=== PATIENT | female | born 1980 | race Asian ===

== ENCOUNTER 2019-07-25 19:43 | Emergency (ER) | payer SELFPAY ==
[2019-07-25 20:09] LABS: ABS Lymphocytes 1.1 10^3/ul (1.0-4.8); ABS Monocytes 0.8 10^3/ul (0-0.8); ABS Neutrophils 8.4 10^3/ul (1.5-7.7); Eosinophil % 0.4 %; Hematocrit 36 % (35-47); Hemoglobin 12.4 g/dL (12.0-16.0); Lymphocyte % 10.7 %; Mean Corpuscular HGB Conc 34 g/dL (31-36); Mean Corpuscular Hemoglobin 31 pg (27-31); Mean Corpuscular Volume 92 fL (80-97); Mean Platelet Volume 7.5 fL (7.4-10.4); Platelet Count 248 10^3/uL (150-450); Red Blood Count 3.95 10^6 /uL (3.70-4.87); Red Cell Distribution Width 13 % (10-15); White Blood Count 10.5 10^3/uL (3.5-10.8)
--- NOTE | 2019-07-25 20:14 | ED ---
Palpitations / Dysrhythmia - HPI Summary HPI Summary: Pt is a 39 y/o F presenting to the ED with a chief complaint of palpitations initially onset a couple of days ago. Pt states she thought it was from not sleeping much d/t long overnight flights from [place] mixed with caffeine and recent stomach issues, but her HR has remained increased even when she sleeps and hydrates. She reports fatigue/weakness, dizziness, and nausea. HR around 110-120 on apple watch. Denies SOB (as per triage) or CP. Fam hx of arrhythmia in grandmother. Denies hx DVT/PE, cardiac problems. - History of Current Complaint Chief Complaint: EDDysrhythmPalp Time Seen by Provider: 07/25/19 19:53 Hx Obtained From: Patient Onset/Duration: Gradual Onset, Lasting Days, Still Present Timing: Constant Severity Initially: Moderate Severity Currently: Moderate Character: Fast Aggravating: Nothing Alleviating: Nothing Associated Signs & Symptoms: Lightheadedness, Dizzy, Chest Pain, Nausea - Allergy/Home Medications Allergies/Adverse Reactions: Allergies Allergy/AdvReac Type Severity Reaction Status Date / Time No Known Allergies Allergy Verified 07/25/19 19:48 Home Medications: Home Medications NK [No Home Medications Reported] 07/25/19 [History Confirmed 07/25/19] PMH/Surg Hx/FS Hx/Imm Hx Previously Healthy: Yes Endocrine/Hematology History: Reports: Hx Anemia - iron deficiency anemia Cardiovascular History: Denies: Hx Myocardial Infarction Sensory History: Denies: Hx Deafness EENT History: Denies: Hx Deafness Infectious Disease History: No Infectious Disease History: Denies: Traveled Outside the [place] in Last 30 Days - Family History Known Family History: Positive: Cardiac Disease, Hypertension, Diabetes - Social History Alcohol Use: None Hx Substance Use: No Substance Use Type: Reports: None Hx Tobacco Use: No Smoking Status (MU): Never Smoked Tobacco Review of Systems Positive: Palpitations Positive: Shortness Of Breath - (resolved) Positive: Nausea Neurological: Other - dizziness Positive: Weakness All Other Systems Reviewed And Are Negative: Yes Physical Exam - Summary Physical Exam Summary: Constitutional: Well-developed, Well-nourished, Alert. (-) Distressed Skin: Warm, Dry HENT: Normocephalic; Atraumatic Eyes: Conjunctiva normal Neck: Musculoskeletal ROM normal neck. (-) JVD, (-) Stridor, (-) Nuchal rigidity Cardio: Rhythm regular, rate tachycardic, Heart sounds normal; Intact distal pulses; Radial pulses are 2+ and symmetric. (-) Murmur Pulmonary/Chest wall: Effort normal. (-) Respiratory distress, (-) Wheezes, (-) Rales Abd: Soft, (-) tenderness, (-) Distension, (-) Guarding, (-) Rebound Musculoskeletal: (-) Edema, no assymetrical calf swelling Lymph: (-) Cervical adenopathy Neuro: Alert, Oriented x3 Psych: Mood and affect Normal Triage Information Reviewed: Yes Vital Signs On Initial Exam: Initial Vitals Temp Pulse Resp BP Pulse Ox 99.9 F 125 15 139/91 97 07/25/19 19:45 07/25/19 19:45 07/25/19 19:45 07/25/19 19:45 07/25/19 19:45 Vital Signs Reviewed: Yes Procedures - Sedation Patient Received Moderate/Deep Sedation with Procedure: No Diagnostics - Vital Signs Vital Signs Temp Pulse Resp BP Pulse Ox 07/25/19 19:45 99.9 F 125 15 139/91 97 - Laboratory Lab Results: Lab Results 07/25/19 Range/Units 20:01 WBC 10.5 (3.5-10.8) 10^3/uL RBC 3.95 (3.70-4.87) 10^6 /uL Hgb 12.4 (12.0-16.0) g/dL Hct 36 (35-47) % MCV 92 (80-97) fL MCH 31 (27-31) pg MCHC 34 (31-36) g/dL RDW 13 (10-15) % Plt Count 248 (150-450) 10^3/uL MPV 7.5 (7.4-10.4) fL Neut % (Auto) 80.3 % Lymph % (Auto) 10.7 % Potter % (Auto) 8.1 % Eos % (Auto) 0.4 % Baso % (Auto) 0.5 % Absolute Neuts (auto) 8.4 H (1.5-7.7) 10^3/ul Absolute Lymphs (auto) 1.1 (1.0-4.8) 10^3/ul Absolute Monos (auto) 0.8 (0-0.8) 10^3/ul Absolute Eos (auto) 0.0 (0-0.6) 10^3/ul Absolute Basos (auto) 0.0 (0-0.2) 10^3/ul Absolute Nucleated RBC 0.0 10^3/ul Nucleated RBC % 0.0 Result Diagrams: 07/25/19 20:01 07/25/19 20:01 Lab Statement: Any lab studies that have been ordered have been reviewed, and results considered in the medical decision making process. - EKG 1953 Cardiac Rate: Other Rate - junctional 106bpm ST Segment: Normal Ectopy: None Summary of EKG Findings: An EKG at 1953 reveals junctional tachycardia at 106bpm , nml axis, nml intervals. No STEMI. No acute changes. No prior EKG for comparison. ED physician has reviewed and interpreted this EKG. 22:19 Cardiac Rate: NL EKG Rhythm: 1st Degree HB - An EKG at 22:19 reveals sinus at 91, nml axis. Prolonged OR No STEMI. Re-Evaluation - Re-Evaluation First Eval Change: Improved - repeat EKG w prolonged OR. HR down to 90's. D/w patient who prefers to wait to see cardiology before medications (fadumo given borderline low BP) Course/Dx - Course Course Of Treatment: 39 y/o F pw palpitations and lightheadedness. - PE well appearing, lungs CTAB. 100% on RA. HR 100-120, EKG w possible junctional tachycardia. - labs notable for stable Hb, trop negative, TSH normal. K and Mg both repleted. No smoking, hormones or risk factors for PE (did take flight but it was short, about 3 hours w layover). No calf swelling. No SOB here or CP ( denies although triage note had written it). - heart score: 1, low risk. - d/ w cardiology lead sales consultant who recommends metoprolol 25 XR, d/w patient who states she would like to wait before starting medication. Feels much better after IVF and electrolyte repletion. Will have her follow up w cardiology - Diagnoses Provider Diagnoses: Palpitations Discharge ED - Sign-Out/Discharge Documenting (check all that apply): Patient Departure - Discharge Plan Condition: Stable Disposition: HOME Patient Education Materials: Heart Palpitations (ED) Referrals: Care [facility] [Outside] Albert Tavera MD [Medical Doctor] - 3 Days Additional Instructions: You were seen in the emergency department for palpitations. Your EKG ( heart tracing) showed junctional tachycardia. We discussed this with our on-call textiles printer who will see you in the office. Please call tomorrow Please follow up with your primary care doctor in next 2-3 days and return to emergency department for continue fast heart rate, chest pain, trouble breathing , passing out worsening or concerning symptoms. It was a pleasure taking care of you today. - Billing Disposition and Condition Condition: STABLE Disposition: Home - Attestation Statements Document Initiated by Cassandraibe: Yes Documenting Scribe: Bernadette Bonilla Provider For Whom Faizan is Documenting (Include Credential): Paola Spencer MD. Scribe Attestation: IBernadette, scribed for Paola Spencer MD. on 07/27/19 at 1223. Scribe Documentation Reviewed: Yes Provider Attestation: The documentation as recorded by the scribe, Bernadette Bonilla accurately reflects the service I personally performed and the decisions made by me, Paola Spencer MD. Status of Scribe Document: Viewed Consult Consult: [id number] Tavera who recommends putting the pt on Metoprolol ER if pt remains tachycardic.
[2019-07-25 20:25] LABS: ALT 5 U/L (7-52); AST 14 U/L (13-39); Albumin 3.7 g/dL (3.2-5.2); Albumin/Globulin Ratio 1.1 (1-3); Alkaline Phosphatase 64 U/L (34-104); Anion Gap 7 mmol/L (2-11); BUN/Creatinine Ratio 20.7 (8-20); Blood Urea Nitrogen 12 mg/dL (6-24); CO2 Carbon Dioxide 27 mmol/L (22-32); Calcium 8.8 mg/dL (8.6-10.3); Chloride 102 mmol/L (101-111); EGFR African American 138.6 (>60); EGFR Non-African American 114.6 (>60); Globulin 3.5 g/dL (2-4); Glucose 118 mg/dL (70-100); Magnesium 1.9 mg/dL (1.9-2.7); Potassium 3.5 mmol/L (3.5-5.0); Sodium 136 mmol/L (135-145); Total Protein 7.2 g/dL (6.4-8.9)
[2019-07-25 20:32] LABS: HCG Pregnancy < 0.60 mIU/mL
[2019-07-25] MEDS ORDERED: Potassium Chlor TAB* 20 MEQ TAB.ER PO ONE (20:38)
[2019-07-25] MEDS ORDERED: Magnesium Oxide TAB* 400 MG PO ONE (20:39)
[2019-07-25 20:48] LABS: TSH (Thyroid Stimulating Horm) 0.96 mcIU/mL (0.34-5.60)
[2019-07-25 20:51] LABS: Free T4 0.83 ng/dL (0.61-1.12)
[2019-07-25] MEDS ORDERED: NS 0.9% 1000 ML** 1,000 ML IV ONE (21:14)
[2019-07-25 22:57] VITALS: BP 105/73
== END 2019-07-25 22:56 | disposition home or self-care (01) ==
LOC: ED 19:43
DX: R00.2 Palpitations (principal); R53.83 Other fatigue; R53.1 Weakness; R42 Dizziness and giddiness; R11.0 Nausea; I47.1 Supraventricular tachycardia
CPT/HCPCS: 36415; 80053; 83735; 84439; 84443; 84702; 85025; 93005; 96360; 99283; A9270-GY